=== PATIENT | male | born 1940 | race Two or more races ===

== ENCOUNTER 2024-11-13 12:27 | Inpatient (IN) | payer OTHER ==
[~2024-11-13] VITALS: Ht 154.9 cm; Wt 63.5 kg
[2024-11-13] MEDS ORDERED: LOSARTAN-HCTZ1 EAC2 PO (13:29)
--- NOTE | 2024-11-13 13:37 | NUR ---
SE RECIBE PTE ALERTA Y ORIENTADO X3. PTE REFIERE DOLOR ABDOMINAL HACE UN MES EL CUAL A EMPEORADO HACE DOS PANDYA. REFIERE QUE DESDE JULIÁN SUFRE DOLOR AL EVAUAR Y LA ESCRETA SALE DE COLOR ADRIAN. SE MIDEN S/V Y SE UBICA.
[2024-11-13] MEDS ORDERED: PANTOPRAZOLE SODIUM 40 MG/VIAL VIAL IV ONE (15:45)
[2024-11-13] MEDS ORDERED: 0.9 % SODIUM CHLORIDE 500 ML IV ONE (15:45)
--- NOTE | 2024-11-13 17:01 | NUR ---
PTE ALERTA Y ORIENTADO X3, RN ESPAÑA ORIENTA SOBRE TX MEDICO,REIFERE ACPETAR. CANALIZA Y COLECTA MUESTRAS DE LAB. ADMINISTRA MEDS ASTON ORDEN MEDICA
[2024-11-13 17:18] LABS: HEMATOCRIT 39.9 % (39.0-48.0); HEMOGLOBIN 12.8 g/dL (13-16.00); MEAN CELL VOLUME 87.1 fL (80.0-100.00); MEAN CORPUSCULAR HEMOGLOBIN 27.9 pg (27.00-32.0); MEAN CORPUSCULAR HGB CONC 32.1 g/dl (32.0-36.0); PLATELET COUNT 155 K/uL (150-450); RED BLOOD COUNT 4.59 M/uL (4.00-6.00); RED CELL DISTRIBUTION WIDTH 14.6 % (11.5-14.5)
[2024-11-13 17:44] LABS: INR 1.07; PROTHROMBIN TIME 11.6 SECONDS (9.0-11.5)
[2024-11-13 18:00] LABS: ALBUMIN 3.8 gm/dL (3.4-5.0); CALCIUM 9.6 mg/dL (8.5-10.1); CREATININE SERUM 1.4 mg/dL (0.70-1.30); GFR 48.16; GLOBULINA 4.3 G/DL (2.4-3.5); POTASSIUM 4.32 mEq/L (3.5-5.1); TOTAL PROTEIN 8.1 gm/dL (6.4-8.2)
[2024-11-13] MEDS ORDERED: BARIUM SULFATE 450 ML ORAL.SUSP PO ONE (18:24)
[2024-11-13 18:49] LABS: URINE APPEARANCE Clear; URINE BILIRRUBIN Negative (NEGATIVE); URINE BLOOD NHT; URINE COLOR Yellow; URINE GLUCOSE Negative (NEGATIVE); URINE KETONE Negative (NEGATIVE); URINE LEUKOCYTE Negative; URINE NITRATE Negative; URINE PROTEIN Negative (NEGATIVE); URINE UROBILINOGEN 0.2 E.U./dl
[2024-11-13 18:55] LABS: URINE BACTERIA 41.5 uL (0.0-1933); URINE RBC 18.9 uL (0.0-20.8)
[2024-11-13 19:09] LABS: URINE CAST 0.29 uL (0.0-1.40); URINE EPITHELIAL CELLS 0.4 uL (0.0-38.8); URINE WBC 1.4 uL (0.0-23.2)
[2024-11-13] MEDS ORDERED: PIPERACILLIN/TAZOBACTAM SODIUM 2.25 GM VIAL IV ONE (22:00)
[2024-11-13] MEDS ORDERED: ONDANSETRON HCL 2 MG/ML VIAL IV ONE (22:00)
[2024-11-13] MEDS ORDERED: ONDANSETRON HCL 2 MG/ML VIAL ONE (22:03)
[2024-11-13] MEDS ORDERED: MEPERIDINE HCL/PF 25 MG/ML VIAL IV STA (23:20)
[2024-11-13] MEDS ORDERED: MORPHINE SULFATE 4 MG/ML CARTRIDGE IV PRN (23:45)
[2024-11-13] MEDS ORDERED: ENALAPRILAT DIHYDRATE 1.25 MG/ML VIAL IV PRN (23:45)
[2024-11-13] MEDS ORDERED: ONDANSETRON HCL 4 MG in 0.9 % SODIUM CHLORIDE 50 ML IV PRN (23:45)
[2024-11-13] MEDS ORDERED: 0.9 % SODIUM CHLORIDE 1,000 ML IV SCH (23:45)
[2024-11-14] MEDS ORDERED: PIPERACILLIN/TAZOBACTAM SODIUM 3.375 GM in DEXTROSE 5 % IN WATER 100 ML IV SCH
[2024-11-14] MEDS ORDERED: PIPERACILLIN/TAZOBACTAM SODIUM 2.25 GM in DEXTROSE 5 % IN WATER 50 ML IV SCH
[2024-11-14 04:23] VITALS: BP 139/67; O2SAT 97
[2024-11-14 08:00] VITALS: BP 137/75; O2SAT 96
[2024-11-14] MEDS ORDERED: PANTOPRAZOLE SODIUM 40 MG/VIAL VIAL IV SCH (09:00)
[2024-11-14] MEDS ORDERED: hydrALAZINE HCL 20 MG VIAL IV PRN (10:45)
[2024-11-14] MEDS ORDERED: AMLODIPINE BESYLATE 5 MG TABLET PO NR (11:00)
[2024-11-14] MEDS ORDERED: TAMSULOSIN HCL 0.4 MG CAP PO NR (11:00)
[2024-11-14] MEDS ORDERED: CEFAZOLIN SODIUM 1,000 MG VIAL IV NR (13:00)
[2024-11-14] MEDS ORDERED: BUPIVACAINE HCL 30 ML VIAL IJ ONE (14:15)
[2024-11-14] MEDS ORDERED: LIDOCAINE HCL 1% 20 ML VIAL IJ ONE (14:15)
[2024-11-14] MEDS ORDERED: MORPHINE SULFATE 4 MG/ML CARTRIDGE IV PRN (15:40)
[2024-11-14] MEDS ORDERED: MORPHINE SULFATE 4 MG/ML VIAL IV ONE (16:30)
[2024-11-14] MEDS ORDERED: GABAPENTIN 300 MG CAPSULE PO SCH (17:00)
[2024-11-14] MEDS ORDERED: ACETAMINOPHEN 500 MG GEL..CAP PO SCH (18:00)
[2024-11-14 20:58] VITALS: BP 160/72
[2024-11-15 00:42] VITALS: BP 101/62; O2SAT 95
[2024-11-15 08:18] LABS: HEMATOCRIT 31.5 % (39.0-48.0); HEMOGLOBIN 10.8 g/dL (13-16.00); MEAN CELL VOLUME 83.9 fL (80.0-100.00); MEAN CORPUSCULAR HEMOGLOBIN 28.9 pg (27.00-32.0); MEAN CORPUSCULAR HGB CONC 34.4 g/dl (32.0-36.0); PLATELET COUNT 135 K/uL (150-450); RED BLOOD COUNT 3.76 M/uL (4.00-6.00); RED CELL DISTRIBUTION WIDTH 14.5 % (11.5-14.5)
[2024-11-15 08:25] LABS: CALCIUM 8.3 mg/dL (8.5-10.1); CREATININE SERUM 1.34 mg/dL (0.70-1.30); GFR 50.66; POTASSIUM 4.28 mEq/L (3.5-5.1)
[2024-11-15 08:30] VITALS: BP 145/73; O2SAT 95
[2024-11-15] MEDS ORDERED: ENOXAPARIN SODIUM 40 MG/0.4 ML SYRINGE SUBCUTANEO SCH (09:00)
[2024-11-15] MEDS ORDERED: AMLODIPINE BESYLATE 5 MG TABLET PO SCH (09:00)
[2024-11-15] MEDS ORDERED: TAMSULOSIN HCL 0.4 MG CAP PO SCH (09:00)
[2024-11-15] MEDS ORDERED: POLYETHYLENE GLYCOL 3350 17 GM BLIST.PACK PO NR (12:45)
[2024-11-15 16:00] VITALS: BP 143/77; O2SAT 96
[2024-11-16 00:34] VITALS: BP 139/76; O2SAT 95
[2024-11-16 08:40] VITALS: BP 149/75; O2SAT 95
[2024-11-16] MEDS ORDERED: POLYETHYLENE GLYCOL 3350 17 GM BLIST.PACK PO SCH (09:00)
== END 2024-11-16 18:15 | disposition home or self-care (01) | DRG 351 ==
LOC: ER 12:29 → SURH 23:51 → SEC-K 23:51 → SURH 11-14 04:01
PROVIDERS: Emergency Medicine; Student in an Organized Health Care Education/Training Program; ADMIT Student in an Organized Health Care Education/Training Program; ATTEND Student in an Organized Health Care Education/Training Program
PROC: BW21ZZZ Computerized Tomography (CT Scan) of Abdomen and Pelvis (ICD-10-PCS; 2024-11-13)
PROC: 0DH68UZ Insertion of Feeding Device into Stomach, Via Natural or Artificial Opening Endoscopic (ICD-10-PCS; 2024-11-13)
PROC: 0YU50JZ Supplement Right Inguinal Region with Synthetic Substitute, Open Approach (ICD-10-PCS; principal; 2024-11-14 13:00)
DX: K56.699 Other intestinal obstruction unspecified as to partial versus complete obstruction (principal); K40.30 Unilateral inguinal hernia, with obstruction, without gangrene, not specified as recurrent; N17.8 Other acute kidney failure; K92.1 Melena; I10 Essential (primary) hypertension